=== PATIENT | male | born 2000 | race African-American/Black ===

== ENCOUNTER 2022-05-03 10:06 | Emergency (ER) | payer MEDICAID ==
[~2022-05-03] VITALS: Ht 185.4 cm; Wt 68.7 kg
[2022-05-03 11:14] VITALS: BP 169/92
[2022-05-03] MEDS ORDERED: PHEN-430 PO ×2 (11:59→18:23)
[2022-05-03] MEDS ORDERED: CIP500T PO ×2 (11:59→18:23)
[2022-05-03] MEDS ORDERED: cefTRIAXone SOD 1,000 MG VL IM ONE (12:00)
[2022-05-03 12:22] LABS: Urine Bacteria NONE SEEN /hpf (None Seen); Urine Blood TRACE /uL (Negative); Urine Specific Gravity 1.018 (1.001-1.035); Urine WBC 284 /hpf (0 - 3)
== END 2022-05-03 12:38 | disposition home or self-care (01) ==
LOC: ER 10:06
DX: N39.0 Urinary tract infection, site not specified (principal); J06.9 Acute upper respiratory infection, unspecified; F17.210 Nicotine dependence, cigarettes, uncomplicated
CPT/HCPCS: 81001; 96372